=== PATIENT | female | born 1985 | race Caucasian/White ===

== ENCOUNTER 2020-05-22 08:10 | Day surgery (SDC) | payer OTHER ==
[~2020-05-22] VITALS: Ht 157.5 cm; Wt 54.5 kg
[~2020-05-22 08:10] MED LIST: SODIUM CHLORIDE 0.9% 1,000 ML ONE
[2020-05-22] MEDS ORDERED: MIDAZOLAM HCL 2 MG/2 ML VIAL IVP ONE (08:11)
[2020-05-22] MEDS ORDERED: KETAMINE HCL 50 MG/ML 10 ML VIAL IVP ONE (08:11)
[2020-05-22] MEDS ORDERED: PROPOFOL 1% 20 ML VIAL IVP ONE (08:11)
[2020-05-22] MEDS ORDERED: FentaNYL CITRATE-PF 100 MCG/2 ML VIAL IVP ONE (08:11)
[2020-05-22] MEDS ORDERED: SODIUM CHLORIDE 0.9% 20 ML ONE (08:46)
[2020-05-22] MEDS ORDERED: HEPARIN SODIUM,PORCINE 5,000 UNITS/ML VIAL ONE ×2 (08:46→12:22)
[2020-05-22] MEDS ORDERED: HEPARIN SODIUM,PORCINE 1,000 UNITS/ML VIAL ONE (08:46)
[2020-05-22] MEDS ORDERED: SODIUM CHLORIDE 0.9% 100 ML ONE (08:47)
[2020-05-22] MEDS ORDERED: BUPIVACAINE HCL/PF 0.25% 30 ML VIAL ONE (08:47)
[2020-05-22] MEDS ORDERED: HEPARIN SODIUM 1000 UNITS/NS 0 ML ONE (08:47)
[2020-05-22] MEDS ORDERED: SODIUM CHLORIDE 0.9% 250 ML IV ONE (08:47)
[2020-05-22] MEDS ORDERED: LIDOCAINE/PF 1% 30 ML VIAL ONE (08:47)
[2020-05-22 09:00] LABS: BASOPHILS % (AUTO) 0.2 % (0.0-2.0); EOSINOPHILS % (AUTO) 0 % (1.0-6.0); HEMATOCRIT 34.3 % (36-46); HEMOGLOBIN 11.8 g/dL (12.0-16.0); LYMPHOCYTES # (AUTO) 0.9 K/uL (1.0-4.8); LYMPHOCYTES % (AUTO) 16.5 % (22.0-44.0); MEAN CORPUSCULAR HGB CONC 34.5 G/dL (31.0-37.0); MEAN CORPUSCULAR VOLUME 96 fL (80-100); MONOCYTES # (AUTO) 0.3 K/uL (0.1-1.0); MONOCYTES % (AUTO) 6.2 % (2.0-9.0); NEUTROPHILS # (AUTO) 4.3 K/uL (1.8-7.7); NEUTROPHILS % (AUTO) 77.1 % (40.0-70.0); PLATELET COUNT (AUTO) 267 K/uL (150-450); RED BLOOD CELL COUNT(AUTO) 3.58 MIL/uL (4.00-5.20); RED CELL DISTRIBUTION WIDTH 16.9 % (11.5-14.5)
[2020-05-22] MEDS ORDERED: AMLO10TA55 PO (09:08)
[2020-05-22] MEDS ORDERED: CARV25TA32 PO (09:08)
[2020-05-22] MEDS ORDERED: PRED20 PO (09:08)
[2020-05-22] MEDS ORDERED: CALC667C PO (09:08)
[2020-05-22] MEDS ORDERED: HYDR200T4 PO (09:08)
[2020-05-22 09:10] LABS: CALCIUM, TOTAL 9.2 mg/dL (8.8-10.5); CREATININE 6.79 mg/dL (0.60-1.30)
[2020-05-22 09:16] LABS: ALBUMIN 3.5 g/dL (3.4-5.0); BILIRUBIN,TOTAL 0.4 mg/dL (0.1-1.0); TOTAL PROTEIN, SERUM 8.3 g/dL (6.4-8.2)
[2020-05-22 09:17] LABS: INR 0.9 (0.9-1.1); PROTHROMBIN TIME 9.4 SEC (9.4-11.6)
[2020-05-22] MEDS ORDERED: SODIUM CHLORIDE 0.9% 1,000 ML IV ONE (09:30)
[2020-05-22] MEDS ORDERED: PROPOFOL 1000 MG/ISO-OSM 0 ML IV ONE (10:47)
[2020-05-22] MEDS ORDERED: SODIUM CHLORIDE 0.9% 500 ML IV ONE (12:00)
[2020-05-22] MEDS ORDERED: PROPOFOL 1000 MG/ISO-OSM 100 ML IV ONE (12:54)
[2020-05-22] MEDS ORDERED: HYDROmorphone 2 MG/ML SYRINGE IVP PRN (14:15)
[2020-05-22] MEDS ORDERED: FentaNYL CITRATE-PF 100 MCG/2 ML VIAL IVP PRN (14:15)
[2020-05-22] MEDS ORDERED: OXYGEN THERAPY IH SCH (20:00)
== END 2020-05-22 16:00 | disposition home or self-care (01) ==
LOC: SURGERY 08:10
PROVIDERS: ATTEND Surgery
DX: I12.0 Hypertensive chronic kidney disease with stage 5 chronic kidney disease or end stage renal disease (principal); N18.6 End stage renal disease; M32.14 Glomerular disease in systemic lupus erythematosus; Z20.828 Contact with and (suspected) exposure to other viral communicable diseases
CPT/HCPCS: 36415; 36821; 80053; 84703; 85025; 85610; 85730; 87635; 93005; J0690; J1644; J2704; J3490; J7030; J7050 ×2; J2250; J3010